=== PATIENT | female | born 1985 | race Hispanic/Latino ===

== ENCOUNTER 2018-05-28 15:24 | Emergency (ER) | payer OTHER ==
[2018-05-28 15:53] LABS: Absolute Monocytes 0.5 K/uL (0.1-1.3); Basophils % 0.6 % (0-1.3); Hematocrit 42.8 % (36.0-45.0); Lymphocytes % 34.6 % (15.3-44.8); Monocytes % 6.2 % (3.3-12.3); RBC Red Blood Cell Count 5.26 M/uL (3.86-4.86)
[2018-05-28 16:13] LABS: Potassium 3.7 mmol/L (3.5-5.1)
--- NOTE | 2018-05-28 16:57 | RAD REPORT ---
EXAM DESCRIPTION: US - Transvaginal OB - 05/28/2018 4:46 pm CLINICAL HISTORY: with vaginal bleeding COMPARISON: None. FINDINGS: The uterus measures 8 x 5 x 5 centimeters. A gestational sac within the endometrium is no t seen. A small nabothian cyst is present within the cervix. A fibroid is not noted. The ovaries are normal in size and echotexture. No significant free fluid is seen. IMPRESSION: These findings may represent an early intrauterine in which the gestational is not yet seen. Complete can even an ectopic can also have this appearance. This all should be correlated clinically and with serial beta HCG levels. Followup endovaginal sonogr am in 1 week would be helpful
--- NOTE | 2018-05-28 17:03 | EDPHYS ---
Physician Documentation [facility] Name: Raquel Samuels Age: 33 yrs Sex: Female : 1985 Arrival Date: 05/28/2018 Time: 15:27 Bed 5 Private MD: None, None ED Physician Noble Holliday HPI: 05/28 15:40 This 33 yrs old Female presents to ER via Ambulatory with complaints of kb Vaginal Bleeding, + Preg <12wks. 15:40 The patient presents to the emergency department with vaginal bleeding, that is light. kb course: care: none, Leakage of Fluid: none appreciated, Ultrasound: the patient has not had an ultrasound, Risk/complications: no obvious risks or complications are appreciated. Previous pregnancies: in previous pregnancies patient has had. Associated signs and symptoms: Pertinent positives: vaginal bleeding, Pertinent negatives: abdominal pain, chest pain, diarrhea, dysuria, fever, frequency, nausea, ruptured membranes, seizure, shortness of breath, vaginal discharge, vomiting. The patient has not experienced similar symptoms in the past. The patient has not recently seen a physician. Pt states she had spotting that was brown in color after intercourse on Saturday. States the color turned red and was heavier today so she came in. Denies abd pain. . 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 - Social history:: Smoking status: Patient/guardian denies using tobacco. - Ebola Screening: : No symptoms or risks identified at this time. ROS: 15:42 Constitutional: Negative for fever, chills, and weight loss, Cardiovascular: Negative kb for chest pain, palpitations, and edema, Respiratory: Negative for shortness of breath, cough, wheezing, and pleuritic chest pain, Abdomen/GI: Negative for abdominal pain, nausea, vomiting, diarrhea, and constipation, Back: Negative for injury and pain, MS/Extremity: Negative for injury and deformity, Skin: Negative for injury, rash, and discoloration, Neuro: Negative for headache, weakness, numbness, tingling, and seizure. 15:42 : Positive for vaginal bleeding. Exam: 15:42 Constitutional: This is a well developed, well nourished patient who is awake, alert, kb and in no acute distress. Head/Face: Normocephalic, atraumatic. Chest/axilla: Normal chest wall appearance and motion. Nontender with no deformity. No lesions are appreciated. Cardiovascular: Regular rate and rhythm with a normal S1 and S2. No gallops, murmurs, or rubs. Normal PMI, no JVD. No pulse deficits. Respiratory: Lungs have equal breath sounds bilaterally, clear to auscultation and percussion. No rales, rhonchi or wheezes noted. No increased work of breathing, no retractions or nasal flaring. Abdomen/GI: Soft, non-tender, with normal bowel sounds. No distension or tympany. No guarding or rebound. No evidence of tenderness throughout. Skin: Warm, dry with normal turgor. Normal color with no rashes, no lesions, and no evidence of cellulitis. MS/ Extremity: Pulses equal, no cyanosis. Neurovascular intact. Full, normal range of motion. Neuro: Awake and alert, GCS 15, oriented to person, place, time, and situation. Cranial nerves II-XII grossly intact. Motor strength 5/5 in all extremities. Sensory grossly intact. Cerebellar exam normal. Normal gait. Vital Signs: 15:35 BP 126 / 82; Pulse 68; Resp 16; Temp 99.4; Pulse Ox 99% ; Pain 1/10; hb 17:27 BP 122 / 80; Pulse 66; Resp 16; Pulse Ox 99% ; sv MDM: 15:37 Patient medically screened. kb 15:42 Data reviewed: vital signs, nurses notes. Data interpreted: Pulse oximetry: on room air kb is 99 %. Interpretation: normal. 17:02 Counseling: I had a detailed discussion with the patient and/or guardian regarding: the kb historical points, exam findings, and any diagnostic results supporting the discharge/admit diagnosis, lab results, radiology results, the need for outpatient follow up, an OB/Gyne specialist, to return to the emergency department if symptoms worsen or persist or if there are any questions or concerns that arise at home. 05/28 15:37 Order name: Quantitative Hcg; Complete Time: 16:15 kb 05/28 15:37 Order name: Abo/rh Typing; Complete Time: 16:49 kb 05/28 15:37 Order name: Basic Metabolic Panel; Complete Time: 16:15 kb 05/28 15:37 Order name: CBC with Diff; Complete Time: 16:06 kb 05/28 16:16 Order name: US Transvaginal Ob; Complete Time: 17:01 kb 05/28 16:55 Order name: ABO/RH no charge; Complete Time: 16:56 EDMS 05/28 15:37 Order name: IV Saline Lock; Complete Time: 15:54 kb 05/28 15:37 Order name: Labs collected and sent; Complete Time: 15:55 kb 05/28 15:37 Order name: NPO; Complete Time: 15:55 kb Administered Medications: No medications were administered Disposition: 17:58 Co-signature as Attending Physician, Noble Holliday MD. rn Disposition: 05/28/18 17:02 Discharged to Home. Impression: Threatened . - Condition is Stable. - Discharge Instructions: Threatened Miscarriage, [id number], Pelvic Rest. - Medication Reconciliation Form, Thank You Letter, Antibiotic Education, Prescription Opioid Use form. - Follow up: Emergency Department; When: As needed; Reason: Worsening of condition. Follow up: Private Physician; When: 2 - 3 days; Reason: Recheck today's complaints, Continuance of care, Re-evaluation by your physician. - Notes: Have Hcg repeated in 48 hours. Result today was 215. If the number is higher than 215, have repeat US in 7-10 days Pelvic rest Signatures: Dispatcher [employer] EDMN Yulisa Hastings, GLOST KILN OPERATOR-C GLOST KILN OPERATOR-Janet Dunn RN RN sv Nieto, Roman, MD MD rn Baxter, Heather, RN RN Corrections: (The following items were deleted from the chart) 17:28 17:02 05/28/2018 17:02 Discharged to Home. Impression: Threatened . Condition sv is Stable. Forms are Medication Reconciliation Form, Thank You Letter, Antibiotic Education, Prescription Opioid Use. Follow up: Emergency Department; When: As needed; Reason: Worsening of condition. Follow up: Private Physician; When: 2 - 3 days; Reason: Recheck today's complaints, Continuance of care, Re-evaluation by your physician. kb
--- NOTE | 2018-05-28 17:03 | ER ---
Nurse's Notes [facility] Name: Raquel Samuels Age: 33 yrs Sex: Female : 1985 Arrival Date: 05/28/2018 Time: 15:27 Bed 5 Private MD: None, None Diagnosis: Threatened Presentation: 05/28 15:33 Presenting complaint: Patient states: Heavy vaginal bleeding and mild cramping x 2 hb days. Pt sis 9 weeks , KATIE 12/28/18, . Transition of care: patient was not received from another setting of care. Onset of symptoms was May 27, 2018. Risk Assessment: Do you want to hurt yourself or someone else? Patient reports no desire to harm self or others. Initial Sepsis Screen: Does the patient meet any 2 criteria? No. Patient's initial sepsis screen is negative. Does the patient have a suspected source of infection? No. Patient's initial sepsis screen is negative. Care prior to arrival: None. 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 - Social history:: Smoking status: Patient/guardian denies using tobacco. - Ebola Screening: : No symptoms or risks identified at this time. Screenin:35 Abuse screen: Denies threats or abuse. Denies injuries from another. Nutritional hb screening: No deficits noted. Tuberculosis screening: No symptoms or risk factors identified. Fall Risk None identified. Assessment: 15:40 General: Appears in no apparent distress. uncomfortable, well developed, Behavior is sv calm, cooperative, appropriate for age. Pain: Denies pain. Neuro: Level of Consciousness is awake, alert, obeys commands, Oriented to person, place, time, situation, Moves all extremities. Full function Gait is steady. Respiratory: Respiratory effort is even, unlabored, Respiratory pattern is regular, symmetrical. : Reports vaginal bleeding that is light flow, pink. Derm: Skin is pink, warm \T\ dry. 17:27 Reassessment: Patient appears in no apparent distress at this time. No changes from sv previously documented assessment. Patient and/or family updated on plan of care and expected duration. Pain level reassessed. Patient is alert, oriented x 3, equal unlabored respirations, skin warm/dry/pink. Vital Signs: 15:35 BP 126 / 82; Pulse 68; Resp 16; Temp 99.4; Pulse Ox 99% ; Pain 1/10; hb 17:27 BP 122 / 80; Pulse 66; Resp 16; Pulse Ox 99% ; sv ED Course: 15:27 Patient arrived in ED. sb2 15:28 None, None is Private Physician. sb2 15:34 Triage completed. hb 15:35 Yulisa Hastings FNP-C is [facility]. kb 15:35 Noble Holliday MD is Attending Physician. kb 15:35 Arm band placed on. hb 15:37 Janet Chavira RN is Primary Nurse. sv 15:37 Patient has correct armband on for positive identification. Bed in low position. sv 15:40 Initial lab(s) drawn, by me, sent to lab. Inserted saline lock: 20 gauge in right sv antecubital area, using aseptic technique. Blood collected. Flushed right antecubital with 5 ml normal saline. 16:32 Patient taken to ultrasound. via wheelchair. cy 16:46 Ultrasound completed. Patient tolerated well. Patient moved back from ultrasound. cy 16:46 US Transvaginal Ob In Process Unspecified. EDMS 17:27 No provider procedures requiring assistance completed. IV discontinued, intact, sv bleeding controlled, No redness/swelling at site. Pressure dressing applied. Administered Medications: No medications were administered Outcome: 17:02 Discharge ordered by . kb 17:27 Discharged to home ambulatory, with significant other. sv 17:27 Condition: stable 17:27 Discharge instructions given to patient, Instructed on discharge instructions, follow up and referral plans. Demonstrated understanding of instructions, follow-up care. 17:28 Patient left the ED. sv Signatures: Dispatcher [employer] EDMS Yulisa Hastings FNP-C FNP-Ckb Verde, Stephanie, RN RN Jaycee Baptiste RN RN Thomas Perez Brissa Macdonald sb2
== END 2018-05-28 17:28 | disposition home or self-care (01) ==
LOC: ER 15:24
DX: O20.0 Threatened abortion (principal); Z3A.00 Weeks of gestation of pregnancy not specified
CPT/HCPCS: 36415; 76817; 80048; 84702; 85025; 86900; 86901; 99284

== ENCOUNTER 2018-05-30 15:42 | Emergency (ER) | payer OTHER ==
--- OUTSIDE RECORDS SUMMARY | 2018-05-30 15:44 | XMS REPORT ---
:1985 [facility] [address] [place] [address] Dr. Dee [address] [place] [id number] Care Team Providers Name Role Phone Unavailable Unavailable Unavailable Problems This patient has no known problems. Allergies, Adverse Reactions, Alerts This patient has no known allergies or adverse reactions. Medications This patient has no known medications.
--- NOTE | 2018-05-30 16:34 | EDPHYS ---
Physician Documentation [facility] Name: Raquel Samuels Age: 33 yrs Sex: Female : 1985 Arrival Date: 05/30/2018 Time: 15:50 Bed 9 Private MD: ED Physician Noble Holliday HPI: 05/30 16:31 This 33 yrs old Female presents to ER via Ambulatory with complaints of kb Recheck HCG Levels. 16:31 The patient presents to the emergency department with needs repeat Hcg. kb course: care: none, Leakage of Fluid: none appreciated, Ultrasound: the patient had an ultrasound, Risk/complications: no obvious risks or complications are appreciated. Previous pregnancies: in previous pregnancies patient has had. Associated signs and symptoms: The patient has no apparent associated signs or symptoms. The patient has not experienced similar symptoms in the past. The patient has not recently seen a physician. Pt presents for repeat HCG. Was seen 2 days ago for vaginal bleeding, HCG was 215. Denies any symptoms at this time. 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 - Social history:: Smoking status: Patient/guardian denies using tobacco. - Ebola Screening: : No symptoms or risks identified at this time. ROS: 16:26 Constitutional: Negative for fever, chills, and weight loss, Cardiovascular: Negative kb for chest pain, palpitations, and edema, Respiratory: Negative for shortness of breath, cough, wheezing, and pleuritic chest pain, Abdomen/GI: Negative for abdominal pain, nausea, vomiting, diarrhea, and constipation, Back: Negative for injury and pain, : Negative for injury, bleeding, discharge, and swelling, MS/Extremity: Negative for injury and deformity, Skin: Negative for injury, rash, and discoloration, Neuro: Negative for headache, weakness, numbness, tingling, and seizure. Exam: 16:26 Constitutional: This is a well developed, well nourished patient who is awake, alert, kb and in no acute distress. Head/Face: Normocephalic, atraumatic. Neck: Trachea midline, no thyromegaly or masses palpated, and no cervical lymphadenopathy. Supple, full range of motion without nuchal rigidity, or vertebral point tenderness. No Meningismus. Chest/axilla: Normal chest wall appearance and motion. Nontender with no deformity. No lesions are appreciated. Cardiovascular: Regular rate and rhythm with a normal S1 and S2. No gallops, murmurs, or rubs. Normal PMI, no JVD. No pulse deficits. Respiratory: Lungs have equal breath sounds bilaterally, clear to auscultation and percussion. No rales, rhonchi or wheezes noted. No increased work of breathing, no retractions or nasal flaring. Abdomen/GI: Soft, non-tender, with normal bowel sounds. No distension or tympany. No guarding or rebound. No evidence of tenderness throughout. Back: No spinal tenderness. No costovertebral tenderness. Full range of motion. Skin: Warm, dry with normal turgor. Normal color with no rashes, no lesions, and no evidence of cellulitis. MS/ Extremity: Pulses equal, no cyanosis. Neurovascular intact. Full, normal range of motion. Neuro: Awake and alert, GCS 15, oriented to person, place, time, and situation. Cranial nerves II-XII grossly intact. Motor strength 5/5 in all extremities. Sensory grossly intact. Cerebellar exam normal. Normal gait. Vital Signs: 15:54 BP 111 / 67; Pulse 61; Resp 16; Temp 98.8; Pulse Ox 99% ; Pain 2/10; sv MDM: 15:59 Patient medically screened. kb 16:25 Data reviewed: vital signs, nurses notes. Data interpreted: Pulse oximetry: on room air kb is 99 %. Interpretation: normal. Counseling: I had a detailed discussion with the patient and/or guardian regarding: the historical points, exam findings, and any diagnostic results supporting the discharge/admit diagnosis, lab results, the need for outpatient follow up, an OB/Gyne specialist, to return to the emergency department if symptoms worsen or persist or if there are any questions or concerns that arise at home. 16:33 ED course: Pt has appt with [facility] for initial labs and US on 06/06/18. Educated to kb keep appt. 05/30 15:55 Order name: [facility]; Complete Time: 16:24 sv Administered Medications: No medications were administered Disposition: 17:47 Co-signature as Attending Physician, Noble Holliday MD. rn Disposition: 05/30/18 16:33 Discharged to Home. Impression: Threatened . - Condition is Stable. - Discharge Instructions: Threatened Miscarriage, [id number], Pelvic Rest. - Medication Reconciliation Form, Thank You Letter, Antibiotic Education, Prescription Opioid Use form. - Follow up: Emergency Department; When: As needed; Reason: Worsening of condition. Follow up: Private Physician; When: 2 - 3 days; Reason: Recheck today's complaints, Continuance of care, Re-evaluation by your physician. Signatures: Dispatcher [employer] EDAR Yulisa Hastings, FIRE INVESTIGATION MANAGER-C FIRE INVESTIGATION MANAGER-Ckb Janet Chavira RN RN Kathe Patten RN RN iw Nieto, Roman, MD MD furniture upholstery mechanic: (The following items were deleted from the chart) 16:39 16:33 05/30/2018 16:33 Discharged to Home. Impression: Threatened . Condition iw is Stable. Forms are Medication Reconciliation Form, Thank You Letter, Antibiotic Education, Prescription Opioid Use. Follow up: Emergency Department; When: As needed; Reason: Worsening of condition. Follow up: Private Physician; When: 2 - 3 days; Reason: Recheck today's complaints, Continuance of care, Re-evaluation by your physician. kb
--- NOTE | 2018-05-30 16:34 | ER ---
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 Transition of care: patient was not received from another setting of care. Onset of symptoms was May 30, 2018. Care prior to arrival: None. 15:52 Method Of Arrival: Ambulatory sv 15:52 Acuity: YULIA 4 sv 16:00 Risk Assessment: Do you want to hurt yourself or someone else? Patient reports no iw desire to harm self or others. Initial Sepsis Screen: Does the patient meet any 2 criteria? No. Patient's initial sepsis screen is negative. Does the patient have a suspected source of infection? No. Patient's initial sepsis screen is negative. Triage Assessment: 16:38 General: Appears in no apparent distress. Behavior is calm, cooperative. 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 - Social history:: Smoking status: Patient/guardian denies using tobacco. - Ebola Screening: : No symptoms or risks identified at this time. Screenin:38 Abuse screen: Denies threats or abuse. Denies injuries from another. Nutritional iw screening: No deficits noted. Tuberculosis screening: No symptoms or risk factors identified. Fall Risk None identified. Assessment: 16:00 General: Appears in no apparent distress. Behavior is calm, cooperative. Pain: Denies iw pain. Neuro: Level of Consciousness is awake, alert, obeys commands, Oriented to person, place, time, situation, Moves all extremities. Cardiovascular: Patient's skin is warm and dry. Respiratory: Respiratory effort is even, unlabored, Respiratory pattern is regular. Derm: Skin is intact, is healthy with good turgor. Musculoskeletal: Range of motion:. Vital Signs: 15:54 BP 111 / 67; Pulse 61; Resp 16; Temp 98.8; Pulse Ox 99% ; Pain 2/10; sv ED Course: 15:50 Patient arrived in ED. rg4 15:53 Triage completed. sv 15:54 Arm band placed on. sv 15:59 Yulisa Hastings FNP-C is [facility]. kb 15:59 Noble Holliday MD is Attending Physician. kb 16:00 Kathe Mcgovern, RN is Primary Nurse. iw 16:00 Patient has correct armband on for positive identification. iw 16:00 Initial lab(s) drawn, by me, sent to lab. sv 16:38 No provider procedures requiring assistance completed. Patient did not have IV access iw during this emergency room visit. Administered Medications: No medications were administered Outcome: 16:33 Discharge ordered by . kb 16:38 Discharged to home ambulatory, with family. iw 16:38 Condition: good 16:38 Discharge instructions given to patient, family, Instructed on discharge instructions, follow up and referral plans. Demonstrated understanding of instructions, follow-up care. 16:39 Patient left the ED. iw Signatures: Yulisa Hastings FNP-C FNP-CkJanet Jenkins, RN RN Kathe Mcgovern, RN RN Kamla Sullivan rg4 Corrections: (The following items were deleted from the chart) 15:55 15:54 Pulse 61bpm; Resp 16bpm; Pulse Ox 99%; Temp 98.8F; Pain 2/10; sv sv
== END 2018-05-30 16:39 | disposition home or self-care (01) ==
LOC: ER 15:42
DX: O20.0 Threatened abortion (principal); Z3A.00 Weeks of gestation of pregnancy not specified
CPT/HCPCS: 36415; 84702